=== PATIENT | female | born 1970 | race Caucasian/White ===

== ENCOUNTER → 2023-07-06 07:13 | Outpatient (REF) | payer OTHER, SELFPAY | LOC: HWRAD 07:13 | PROVIDERS: ATTENDING PHYSICIAN Registered Nurse; FAMILY PHYSICIAN Family Medicine | DX: R79.89 Other specified abnormal findings of blood chemistry (principal) | CPT/HCPCS: 76700 ==

== ENCOUNTER → 2024-06-05 12:47 | Outpatient (REF) | payer OTHER, SELFPAY | LOC: HWRAD 12:47 | PROVIDERS: ATTENDING PHYSICIAN Surgery; FAMILY PHYSICIAN Nurse Practitioner Adult Health | DX: N20.0 Calculus of kidney (principal) | CPT/HCPCS: 76775 ==

== ENCOUNTER → 2025-01-02 07:30 | Outpatient (REF) | payer OTHER, SELFPAY | LOC: CLAB 07:30 | PROVIDERS: ATTENDING PHYSICIAN Surgery | DX: N20.0 Calculus of kidney (principal); N39.0 Urinary tract infection, site not specified | CPT/HCPCS: 82365 ==

== ENCOUNTER → 2025-03-07 14:31 | Outpatient (REF) | payer OTHER, SELFPAY | LOC: MRI 14:31 | PROVIDERS: ATTENDING PHYSICIAN Specialist | DX: K76.0 Fatty (change of) liver, not elsewhere classified (principal) | CPT/HCPCS: 74181; 76391 ==